=== PATIENT | female | born 1975 | race Caucasian/White ===

== ENCOUNTER 2019-01-23 09:00 | Outpatient (RCR) | payer MEDICAID | END 2019-01-27 | LOC: M OT 09:00 | PROVIDERS: ATTEND Orthopaedic Surgery Hand Surgery | DX: Z47.89 Encounter for other orthopedic aftercare (principal) ==

== ENCOUNTER 2019-02-16 10:15 | Outpatient (RCR) | payer MEDICAID, OTHER | END 2019-02-27 | disposition home or self-care (01) | LOC: M PT 10:15 | PROVIDERS: ATTEND Orthopaedic Surgery Hand Surgery | DX: M77.11 Lateral epicondylitis, right elbow (principal) ==

== ENCOUNTER → 2019-04-05 | Outpatient (CLI) | payer OTHER ==
[~2019-04-05] MED LIST: PROHANCE 279.3MG/ML 15ML VIAL (A9576) As Ordered ONE
--- NOTE | 2019-04-05 16:41 | REPVR ---
PROCEDURE INFORMATION: Exam: MR Cervical Spine Without and With Contrast Exam date and time: 04/05/2019 3:43 PM Age: 43 years old Clinical indication: Prior surgery; Surgery date: 6+ months; Surgery type: SX x2; Patient HX: Neck pain stiffness; Additional info: Spondylosis of cervical region TECHNIQUE: Imaging protocol: Multiplanar magnetic resonance images of the cervical spine without and with intravenous contrast. Contrast material: PROHANCE; Contrast volume: 12 ml; Contrast route: 22G ANGIO; COMPARISON: No relevant prior studies available. FINDINGS: Vertebrae: There is no fracture. Spinal cord: The cervical spinal cord and cervical medullary junction are normal. No cord compression. No abnormal enhancement. C2-C3: Disc dehydration. No central stenosis, foraminal stenosis or disc bulge. C3-C4: disc dehydration. Type 1 degenerative changes of the endplates. Mild, 2 mm, disc bulge. No central stenosis. There is facet and uncovertebral hypertrophy with mild left foraminal stenosis. C4-C5: Spondylosis and disc space narrowing. Mild foraminal stenosis. No central stenosis. C5-C6: Anterior fusion. No central or foraminal stenosis. C6-C7: Anterior fusion. No central or foraminal stenosis. C7-T1: Mild, 2 mm, disc bulge. No central or foraminal stenosis. Other bones/joints: Vertebral arteries: Expected flow voids in the vertebral arteries. Soft tissues: No paraspinous or intraspinal mass, hemorrhage, fluid collection or abnormal enhancement. IMPRESSION: 1. No fracture or acute findings. 2. C5-C7 anterior fusion with no evidence of pseudoarthrosis. No spinal stenosis. 3. Mild degenerative changes detailed above. Electronically signed by: Flavio Luna On 04/05/2019 16:40:34 PM
== END ==
LOC: M RAD 14:30
PROVIDERS: ATTEND Orthopaedic Surgery Hand Surgery
DX: M47.892 Other spondylosis, cervical region (principal); M50.320 Other cervical disc degeneration, mid-cervical region, unspecified level; M50.222 Other cervical disc displacement at C5-C6 level
CPT/HCPCS: 72156; A9576

== ENCOUNTER → 2019-05-02 | Outpatient (CLI) | payer OTHER ==
--- NOTE | 2019-05-02 11:00 | REP ---
MRI right shoulder without contrast: History: Pain in the right shoulder. Right upper extremity numbness. Rule out rotator cuff tear. Technique: Axial, oblique coronal and oblique sagittal imaging planes were utilized. T1 and T2-weighted scans were obtained in the usual fashion with without fat saturation. MRI findings: Glenohumeral and acromioclavicular joint alignment is normal. Cortical and medullary bone signal intensity are normal. There is evidence of tendonitis tendinosis in the distal supraspinatus tendon but no focal or full-thickness cuff tear is appreciated. Some linear fluid signal intensity seen on T2-weighted scans along the undersurface or synovial side of the supraspinatus tendon. Partial thickness lesion suspected. Somewhat downsloping acromion process. There is irregularity of the anterior labral cartilage which appears partially amputated on axial T2-weighted scans. The infraspinatus, biceps, and subscapularis tendons appear intact. No juxtaarticular cyst or mass is seen. No skeletal muscle finding. 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 Irregularity/fraying of the anterior labral cartilage. Electronically Signed by Renzo Cota MD 05/02/2019 02:29 P
== END ==
LOC: M RAD 07:47
PROVIDERS: ATTEND Orthopaedic Surgery
DX: M75.81 Other shoulder lesions, right shoulder (principal)